=== PATIENT | female | born 1970 | race Caucasian/White ===

== ENCOUNTER 2016-06-24 01:55 | Emergency (ER) | payer OTHER ==
[~2016-06-24] VITALS: Ht 160 cm; Wt 67.6 kg
[~2016-06-24 01:55] MED LIST: NO REPORTABLE MEDS
[2016-06-24] MEDS ORDERED: oxyCODONE/APAP (5/325 MG) 1 UDTAB TABLET ONE (03:22)
[2016-06-24] MEDS ORDERED: oxyCODONE/APAP (5/325 MG) 1 UDTAB TABLET PO ONE (03:30)
[2016-06-24 03:33] VITALS: BP 131/91
== END 2016-06-24 03:35 | disposition home or self-care (01) ==
LOC: ER 01:55
DX: Z00.8 Encounter for other general examination (principal); Z88.0 Allergy status to penicillin
CPT/HCPCS: A4606; Z7610